=== PATIENT | male | born 1965 | race Two or more races ===

== ENCOUNTER 2021-01-31 10:27 | Day surgery (SDC) | payer OTHER | END 2021-01-31 16:50 | disposition home or self-care (01) | LOC: AMB-ENDOS 10:27 | PROVIDERS: ATTEND Colon & Rectal Surgery | DX: D12.8 Benign neoplasm of rectum (principal); Z20.822 Contact with and (suspected) exposure to COVID-19; Z12.11 Encounter for screening for malignant neoplasm of colon ==